=== PATIENT | male | born 1980 ===

== ENCOUNTER 2021-06-14 16:06 | Outpatient (CLI) | payer OTHER ==
--- NOTE | 2021-06-15 09:52 | XRAY Report ---
PROCEDURE: Hand 2 View LT INDICATIONS: DOG BITE LEFT HAND TECHNIQUE: 2 views of the hand(s) acquired. COMPARISON: None FINDINGS: Bones: No fractures or dislocations. No suspicious bony lesions. Soft tissues: Soft tissue swelling along the dorsum of the hand at the level of the second and third metacarpals. No radiopaque foreign body. IMPRESSION: No fracture. Soft tissue swelling as above Reviewed by: Ross Tolbert MD on 06/15/2021 9:50 AM PST Approved by: Ross Tolbert MD on 06/15/2021 9:50 AM PST Station ID: [id number]
== END 2021-06-14 23:59 ==
LOC: DI.N 16:06
PROVIDERS: ATTEND Physician Assistant
DX: S61.452A Open bite of left hand, initial encounter (principal)

== ENCOUNTER 2021-09-27 11:13 | Emergency (ER) | payer OTHER ==
[2021-09-27] MEDS ORDERED: predniSONE 20 MG TABLET PO STA (14:16)
--- NOTE | 2021-09-27 14:19 | ED Physician Documentation ---
History of Present Illness - Stated complaint Stated Complaint: FACIAL RASH - Chief complaint Chief Complaint: Allergic Rx - History obtained from History obtained from: Patient - History of Present Illness Timing: Last night Pain level max: 0 Pain level now: 0 - Additonal information Additional information: Patient is a 41-year-old male who presents to the emergency department with facial swelling and hives. He states that this occurs several times throughout the year. Started last night, improved today. He is on hydroxyzine for this at home. He is awaiting a referral with an senior data mining analyst, the appointment is not until November. No difficulty speaking or swallowing. No difficulty breathing. No new soaps, lotions, detergents. Review of Systems Constitutional: denies: Fever, Chills GI: denies: Vomiting, Diarrhea Musculoskeletal: denies: Neck pain, Back pain Neurologic: denies: Headache PD PAST MEDICAL HISTORY - Past Medical History Past Medical History: Yes Other Past Medical History: chronic back pain, - Past Surgical History Past Surgical History: No - Present Medications Home Medications: Ambulatory Orders Medication Instructions Recorded Confirmed predniSONE [Deltasone] 10 mg PO [id number] #42 tab 09/27/21 - Allergies Allergies/Adverse Reactions: Allergies Allergy/AdvReac Type Severity Reaction Status Date / Time No Known Drug Allergies Allergy Verified 09/27/21 11:36 - Living Situation Living Situation: reports: With family Living Arrangement: reports: At home - Social History Does the pt have substance abuse?: No PD ED PE NORMAL - Vitals Vital signs reviewed: Yes - General General: Alert and oriented X 3, No acute distress, Well developed/nourished - HEENT HEENT: PERRL, Moist mucous membranes, Pharynx benign, Other (mild facial swelling, diffuse, normal phonation, no trismus) - Neck Neck: Supple, no meningeal sign - Cardiac Cardiac: RRR - Respiratory Respiratory: No respiratory distress, Clear bilaterally - Abdomen Abdomen: Soft, Non tender, Non distended - Derm Derm: Warm and dry, No rash - Neuro Neuro: Alert and oriented X 3 - Psych Psych: Normal mood, Normal affect Results - Vitals Vitals: Vital Signs - 24 hr 09/27/21 09/27/21 11:36 14:43 Temperature 36.9 C 36.8 C Heart Rate 79 74 Respiratory 15 14 Rate Blood Pressure 143/84 H 103/74 O2 Saturation 99 100 Oxygen O2 Source Room air PD MEDICAL DECISION MAKING - ED course Complexity details: considered differential, d/w patient ED course: Patient with mild facial swelling, and appears to have improved with taking his hydroxyzine. Will place on steroids as well. Unclear etiology. He has an appointment with the senior data mining analyst coming up. No stridor. No wheezing. Normal phonation. No trismus. Patient counseled regarding signs and symptoms for which I believe and urgent re-evaluation would be necessary. Patient with good understanding of and agreement to plan and is comfortable going home at this time This document was made in part using voice recognition software. While efforts are made to proofread this document, sound alike and grammatical errors may occur. Departure - Departure Disposition: 01 Home, Self Care Clinical Impression: Urticaria, Facial swelling Condition: Good Instructions: ED Allergic Reaction General Other Follow-Up: Provider,Other [Primary Care Provider] - Within 1 week Prescriptions: predniSONE [Deltasone] 10 mg PO [id number] #42 tab Comments: Your prescription was sent to the [facility]. The steroids should help with the swelling. Please follow up with your doctor and an senior data mining analyst for further care. Discharge Date/Time: 09/27/21 14:43
[2021-09-27 14:43] VITALS: BP 103/74
== END 2021-09-27 14:43 | disposition home or self-care (01) ==
LOC: ED 11:13
DX: L50.9 Urticaria, unspecified (principal)
CPT/HCPCS: 99282; J7512

== ENCOUNTER 2022-01-28 14:47 | Outpatient (CLI) | payer OTHER ==
--- NOTE | 2022-01-28 17:34 | MRI Report ---
PROCEDURE: Lumbar Spine W/O INDICATIONS: DORSALGIA TECHNIQUE: Noncontrast sagittal T1 spin echo and T2 fast echo, sagittal STIR, axial T1 and T2 fast spin echo thr ough the lumbar spine. In cases with scoliosis, additional coronal T2 fast spin echo may be performe d. COMPARISON: None. FINDINGS: Image quality: Excellent. Alignment and Curvature: There is normal bony alignment. Bone Marrow: Marrow is of normal overall signal. No acute vertebral body compression fractures. Spinal Cord: Conus medullaris terminates at the L1 level. Visualized cord demonstrates normal signa l and size. Paraspinous Soft Tissues: No paravertebral masses. T12-L1: Normal in appearance. L1-L2: Normal in appearance. L2-L3: Normal in appearance. L3-L4: Normal in appearance. L4-L5: Normal in appearance. L5-S1: Loss of disc signal. Mild, diffuse disc bulge. No central stenosis. No neural foraminal narr owing. No neural compression. Fissure noted in the posterior annulus. IMPRESSION: 1. Mild L5-S1 degenerative disc disease. 2. L5-S1 disc annulus fissure. 3. No central stenosis. 4. No neural foraminal narrowing. 5. No neural compression. Reviewed by: Jackeline Gay MD, PhD on 01/28/2022 5:33 PM PDT Approved by: Jackeline Gay MD, PhD on 01/28/2022 5:33 PM PDT Station ID: [id number]
== END 2022-01-28 14:48 | disposition home or self-care (01) ==
LOC: DI 14:47
PROVIDERS: ATTEND Student in an Organized Health Care Education/Training Program
DX: M51.36 Other intervertebral disc degeneration, lumbar region (principal)

== ENCOUNTER 2022-01-31 19:50 | Outpatient (CLI) | payer OTHER | END 2022-01-31 19:51 | disposition home or self-care (01) | LOC: SC 19:50 | PROVIDERS: ATTEND Nurse Practitioner Family | DX: G47.33 Obstructive sleep apnea (adult) (pediatric) (principal) | CPT/HCPCS: 95810 ==